=== PATIENT | male | born 1960 | race Caucasian/White ===

== ENCOUNTER 2017-01-13 15:09 | Emergency (ER) | payer SELFPAY ==
[~2017-01-13] VITALS: Ht 170.2 cm; Wt 76.3 kg
[2017-01-13 15:58] LABS: ADD MIUA? YES; BILIRUBIN NEGATIVE; BLOOD SMALL; COLOR COLORLESS ((YELLOW)); GLUCOSE (STRIP) NEGATIVE; KETONES NEGATIVE; LEUKOCYTES NEGATIVE; NITRITE NEGATIVE; PROTEIN (STRIP) NEGATIVE; UROBILINOGEN 0.2 MG/DL (0.2-1.0)
[2017-01-13 16:03] LABS: CHLORIDE 104 mEq/L (99-109); POTASSIUM 3.7 mEq/L (3.7-5.4); SODIUM 138 mEq/L (136-147)
[2017-01-13 16:05] LABS: GLUCOSE 116 mg/dL (70-99); HEMATOCRIT 35.1 % (38.0-50.0); MCH 23.6 PG (29.0-34.0); MCHC 31.6 G/DL (30.0-36.0); MCV 74.5 FL (86-99); RBC DIS.WIDTH-CV 15.4 % (11.8-14.6); RBC DIS.WIDTH-SD 41.8 % (39-53); RED BLOOD COUNT 4.71 M/uL (4.00-5.50); WHITE BLOOD COUNT 5.5 K/uL (4.1-10.2)
[2017-01-13 16:06] LABS: ANION GAP 9 MEQ/L (2-14)
[2017-01-13 16:07] LABS: TOTAL BILIRUBIN 0.6 mg/dL (0.0-1.0)
[2017-01-13 16:09] LABS: ALKALINE PHOSPHATASE 51 IU/L (3-129); GFR ESTIMATE (CALCULATED) > 59 mL/min/
[2017-01-13 16:10] LABS: DIRECT BILIRUBIN 0.3 mg/dL (0.0-0.3); UREA NITROGEN (BUN) 11 mg/dL (9-23)
[2017-01-13 16:12] LABS: MEAN PLAT.VOLUME 9.4 uM^3 (9.0-12.4); PLATELET COUNT 135 K/uL (156-360)
[2017-01-13 16:18] LABS: BACTERIA NONE SEEN /HPF; EPITHELIAL CELLS NONE SEEN /HPF; MUCUS NONE SEEN /LPF; UCUL ADDED? NO; WHITE BLOOD CELLS 0-5 /HPF (0-5)
[2017-01-13] MEDS ORDERED: PERCOCET 5/31 TABLET PO (17:16)
[2017-01-13] MEDS ORDERED: FLOMAX0.4 MG PO (17:16)
[2017-01-13 17:33] VITALS: BP 166/88
== END 2017-01-13 17:35 | disposition home or self-care (01) ==
LOC: EME 15:09
PROVIDERS: Physician Assistant Medical
DX: N13.2 Hydronephrosis with renal and ureteral calculous obstruction (principal); I70.0 Atherosclerosis of aorta; K40.90 Unilateral inguinal hernia, without obstruction or gangrene, not specified as recurrent; K42.9 Umbilical hernia without obstruction or gangrene
CPT/HCPCS: 74176; 80053; 81003; 82248; 85027; 99281; 99283